=== PATIENT | female | born 1930 | race Caucasian/White ===

== ENCOUNTER → 2016-10-01 | Outpatient (CLI) | payer OTHER ==
[~2016-10-01] MED LIST: ACTONEL; ADULT LOW DOSE81 MG PO; AMBIEN 10 MG TA10 MG PO; ASPIRIN300 MG PO; ATIVAN0.5 MG PO; CALCIUM PO; CHLORDIAZEPOXID25 M1 PO; CHLORDIAZEPOXIDE5 M2 PO; HCTZ PO; KLOR-CON PO; LANOXIN 0.120.125 M1 PO; LIPITOR20 MG PO; MAG-OX 400 TAB400 M1 PO; MULTIVITAMINS PO; Motrin PO; OMEGA-3 FISH O1 EAC3 PO; REMERON15 MG PO; [UNRECOGNIZED DRUG - CODE] PO; [UNRECOGNIZED DRUG - CODE] PO; [UNRECOGNIZED DRUG - OTHER] PO
== END ==
LOC: RAD 17:06
DX: J18.9 Pneumonia, unspecified organism (principal)

== ENCOUNTER → 2016-10-16 | Outpatient (CLI) | payer OTHER | LOC: RAD 07:32 | DX: J18.9 Pneumonia, unspecified organism (principal) ==

== ENCOUNTER → 2016-11-20 | Outpatient (CLI) | payer OTHER | LOC: RAD 11:28 | DX: J18.9 Pneumonia, unspecified organism (principal) ==

== ENCOUNTER → 2016-12-03 | Outpatient (CLI) | payer OTHER | LOC: CAT 08:05 | DX: J18.9 Pneumonia, unspecified organism (principal); K76.89 Other specified diseases of liver; I77.810 Thoracic aortic ectasia; M47.894 Other spondylosis, thoracic region; M41.84 Other forms of scoliosis, thoracic region ==

== ENCOUNTER 2018-12-14 11:29 | Emergency (ER) | payer OTHER ==
[~2018-12-14] VITALS: Ht 160 cm; Wt 47.6 kg
[2018-12-14 13:37] VITALS: BP 154/92
== END 2018-12-14 13:37 | disposition home or self-care (01) ==
LOC: ER 11:29
DX: H53.8 Other visual disturbances (principal); I10 Essential (primary) hypertension; E78.5 Hyperlipidemia, unspecified; Z88.5 Allergy status to narcotic agent; Z88.0 Allergy status to penicillin